=== PATIENT | female | born 1970 | race Asian ===

== ENCOUNTER 2017-08-10 17:05 | Observation (INO) | payer OTHER ==
[~2017-08-10] VITALS: Ht 152.4 cm; Wt 58.9 kg
[2017-08-10 17:17] VITALS: BP 161/84
[2017-08-10] MEDS ORDERED: SODIUM CHLORIDE 0.9% 1,000 ML IV ONE (17:25)
[2017-08-10] MEDS ORDERED: SODIUM CHLORIDE FLUSH 10ML SYR IVF ONE (17:30)
[2017-08-10] MEDS ORDERED: SODIUM CHLORIDE FLUSH 10ML SYR IVF PRN (18:00)
[2017-08-10] MEDS ORDERED: BUPIVACAINE/PF 0.25% ONE (18:19)
[2017-08-10] MEDS ORDERED: EPINEPHRINE 1 MG/ML, 1ML ONE (18:19)
[2017-08-10] MEDS ORDERED: THROMBIN 5,000 UNIT VIAL TP ONE (18:25)
[2017-08-10 18:33] LABS: HEMATOCRIT 38.8 % (34.6-47.8); HEMOGLOBIN 12.3 g/dL (11.7-16.4); WHITE BLOOD COUNT 10.8 x10^3/uL (3.4-10)
[2017-08-10] MEDS ORDERED: FENTANYL PF 100 MCG/2ML ONE (18:35)
[2017-08-10] MEDS ORDERED: MIDAZOLAM 1 MG/ML, 2ML ONE (18:35)
[2017-08-10] MEDS ORDERED: DEXAMETHASONE 4 MG/ML, 1ML ONE (18:46)
[2017-08-10] MEDS ORDERED: ONDANSETRON 2MG/ML, 2ML ONE (18:46)
[2017-08-10] MEDS ORDERED: SUCCINYLCHOLINE 20 MG/ML, 10ML ONE (18:46)
[2017-08-10] MEDS ORDERED: PROPOFOL 10 MG/ML, 20ML ONE (18:46)
[2017-08-10] MEDS ORDERED: LABETALOL 5MG/ML, 20ML IV PRN (19:00)
[2017-08-10] MEDS ORDERED: OXYcodone 5 MG/5 ML ORAL.SOL UDC PO PRN (19:00)
[2017-08-10] MEDS ORDERED: HYDROmorphone 1 MG/ML, 1ML IV PRN (19:00)
[2017-08-10] MEDS ORDERED: ACETAMINOPHEN 325 MG TABLET PO PRN (19:00)
[2017-08-10] MEDS ORDERED: hydrALAzine 20 MG/ML, 1ML IV PRN (19:00)
[2017-08-10] MEDS ORDERED: METOCLOPRAMIDE 5 MG/ML, 2ML IV PRN (19:00)
[2017-08-10] MEDS ORDERED: FENTANYL PF 100 MCG/2ML IV PRN (19:00)
[2017-08-10] MEDS ORDERED: ONDANSETRON 2MG/ML, 2ML IVPush PRN (19:00)
[2017-08-10] MEDS ORDERED: OXYcodone 5 MG/5 ML ORAL.SOL UDC ONE (19:51)
[2017-08-10] MEDS ORDERED: ONDANSETRON 2MG/ML, 2ML IV PRN (21:00)
[2017-08-10] MEDS ORDERED: IBUPROFEN 600 MG TABLET PO PRN (21:00)
[2017-08-10] MEDS ORDERED: OXYcodone/APAP 5/325MG TABLET PO PRN (21:00)
== END 2017-08-10 22:15 | disposition home or self-care (01) ==
LOC: OR 17:38 → INTOOBSV 17:39 → OR 17:39 → 4NOR 17:39 → OR 18:41 → 4NOR 20:34 → UNDODISIN 22:15
PROVIDERS: ADMIT Specialist; ATTEND Specialist
DX: D26.0 Other benign neoplasm of cervix uteri (principal); D25.9 Leiomyoma of uterus, unspecified
CPT/HCPCS: 36415; 57510; 85025; 85610; 85730; 99285; G0378; J0330; J1100; J2250; J2405; J2704; J3010; J0171; J3490